=== PATIENT | female | born 1975 | race Caucasian/White ===

== ENCOUNTER → 2023-12-04 12:45 | Outpatient (REF) | payer OTHER, SELFPAY | LOC: HWRAD 12:45 | PROVIDERS: ATTENDING PHYSICIAN Advanced Practice Midwife; FAMILY PHYSICIAN Physician Assistant Medical; REFERRING PHYSICIAN Internal Medicine | DX: N95.0 Postmenopausal bleeding (principal) | CPT/HCPCS: 76830; 76856 ==

== ENCOUNTER → 2024-11-15 12:33 | Outpatient (REF) | payer OTHER, SELFPAY | LOC: HWRAD 12:33 | PROVIDERS: ATTENDING PHYSICIAN Family Medicine | DX: M25.562 Pain in left knee (principal) | CPT/HCPCS: 73564 ==